=== PATIENT | male | born 1980 | race American Indian/Alaskan Native ===

== ENCOUNTER 2018-05-19 20:13 | Emergency (ER) | payer OTHER ==
[2018-05-19 20:36] VITALS: BP 141/100
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
== END 2018-05-19 23:05 | disposition home or self-care (01) ==
LOC: ED 20:13
DX: M25.562 Pain in left knee (principal); F17.200 Nicotine dependence, unspecified, uncomplicated; V89.2XXA Person injured in unspecified motor-vehicle accident, traffic, initial encounter; Y93.89 Activity, other specified; Y92.89 Other specified places as the place of occurrence of the external cause; Y99.8 Other external cause status
CPT/HCPCS: 99283